=== PATIENT | female | born 1955 | race Caucasian/White ===

== ENCOUNTER 2023-04-05 08:23 | Emergency (ER) | payer MEDICARE ==
[~2023-04-05] VITALS: Ht 162.6 cm; Wt 81.0 kg
[2023-04-05] MEDS ORDERED: MORPHINE SULFATE 4 MG/ML CPJ (NOT FOR IM USE) IV STA (09:01)
[2023-04-05] MEDS ORDERED: SODIUM CHLORIDE 0.9% 1,000 ML IV ONE (09:15)
[2023-04-05 11:12] LABS: HEMATOCRIT. 40.4 % (36.0-48.0); MEAN CORPUSCULAR HEMOGLOBIN 30.2 pg (28.0-32.0); MEAN CORPUSCULAR HGB CONC 32.2 g/dL (31.0-37.0); PLATELET 276 x1000/uL (130-400); WHITE BLOOD COUNT 13.4 x1000/uL (4.5-11.0)
[2023-04-05 11:22] LABS: DIFFERENTIAL COMMENT 1
[2023-04-05 11:23] LABS: PROTHROMBIN TIME 10.4 sec (9.6-11.0)
[2023-04-05 11:38] LABS: ALANINE AMINOTRANSFERASE 14 IU/L (10-49); ALBUMIN 3.8 g/dL (3.2-4.8); ASPARTATE AMINOTRANSFERASE 19 IU/L (<34); BILIRUBIN TOTAL 0.3 mg/dL (0.1-1.0); CALCIUM 8.6 mg/dL (8.7-10.4); CARBON DIOXIDE 27 mEq/L (21-32); CHLORIDE 107 mEq/L (98-107); CREATININE 0.6 mg/dL (0.6-1.0); GLUCOSE 138 mg/dL (70-105); POTASSIUM 3.9 mEq/L (3.5-5.1); PROTEIN TOTAL 6.8 g/dL (6.0-8.3); SODIUM 142 mEq/L (136-145); UREA NITROGEN BLOOD 16 mg/dL (9-23)
[2023-04-05 11:57] LABS: PLATELET ESTIMATE NORMAL
[2023-04-05] MEDS ORDERED: KETAMINE HCL 50 MG/ML 10ML IV ONE (12:00)
[2023-04-05 12:04] VITALS: O2SAT 99
[2023-04-05] MEDS ORDERED: ACET-2708 MT (13:30)
[2023-04-05 13:39] VITALS: BP 121/73; PULSE 90; RESP 17; TEMP 98.2
== END 2023-04-05 14:11 | disposition home or self-care (01) ==
LOC: ER 08:23
DX: S43.005A Unspecified dislocation of left shoulder joint, initial encounter (principal); S01.112A Laceration without foreign body of left eyelid and periocular area, initial encounter; W18.2XXA Fall in (into) shower or empty bathtub, initial encounter; Y93.89 Activity, other specified; Y92.89 Other specified places as the place of occurrence of the external cause; Y99.8 Other external cause status
CPT/HCPCS: 99291; 70450; 23650; 96374; 71045; 96361; 80053; 85025; 85610; 36415; 73030; 73060; 73070; 73090; 73100; 73120; 70486; 72125; 12013; 99152; J3490; J2270; J7030

== ENCOUNTER 2023-07-24 15:26 | Emergency (ER) | payer MEDICARE, MEDICAID ==
[~2023-07-24] VITALS: Ht 152.4 cm; Wt 78.0 kg
[~2023-07-24 15:26] MED LIST: ACET-2708 MT
[2023-07-24 15:32] VITALS: O2SAT 98
[2023-07-24] MEDS: HYDROCODONE/ACETAMINOPHEN 5/325MG TABLET PO STA ×2 (17:12→19:14)
[2023-07-24] MEDS ORDERED: NAPR-681 MT (18:50)
[2023-07-24] MEDS ORDERED: HYDR-4001 MT (18:50)
[2023-07-24] MEDS: KETOROLAC 15MG/ML VIAL IM ONE (19:14)
[2023-07-24 19:45] VITALS: BP 115/59; PULSE 87; RESP 18; TEMP 98.4
== END 2023-07-24 20:09 | disposition home or self-care (01) ==
LOC: ER 15:26
DX: S42.301A Unspecified fracture of shaft of humerus, right arm, initial encounter for closed fracture (principal); W18.39XA Other fall on same level, initial encounter; Y93.89 Activity, other specified; Y92.89 Other specified places as the place of occurrence of the external cause; Y99.8 Other external cause status
CPT/HCPCS: 99284; 29105; 73030; 73080; 96372; J1885; 99283

== ENCOUNTER 2023-08-12 09:29 | Emergency (ER) | payer MEDICARE, MEDICAID ==
[~2023-08-12] VITALS: Ht 157.5 cm; Wt 67.0 kg
[~2023-08-12 09:29] MED LIST changes: +HYDR-4001 MT; +NAPR-681 MT
[2023-08-12 09:33] VITALS: O2SAT 100
[2023-08-12] MEDS ORDERED: IBUP-2028 MT (13:28)
[2023-08-12 13:42] VITALS: BP 148/88; PULSE 87; RESP 19; TEMP 97.8
== END 2023-08-12 13:43 | disposition home or self-care (01) ==
LOC: ER 09:29
DX: M25.521 Pain in right elbow (principal)
CPT/HCPCS: 29125; 73080; 99283